=== PATIENT | female | born 1965 | race Hispanic/Latino ===

== ENCOUNTER 2022-03-22 20:21 | Inpatient (IN) | payer BC ==
[~2022-03-22] VITALS: Ht 157.5 cm; Wt 97.1 kg
[2022-03-22] MEDS ORDERED: ACETAMINOPHEN 325 MG TAB PO ONE (21:00)
[2022-03-22 21:05] LABS: BASOPHILS % 0.2 % (0.0-1.0); EOSINOPHILS # (AUTO) 0.3 (0.0-0.4); EOSINOPHILS % 2.2 % (0.0-6.0); HEMATOCRIT 36.9 % (34.2-44.1); LYMPHOCYTES # (AUTO) 1.9 (1.0-3.2); LYMPHOCYTES % 12.5 % (18.0-39.1); MEAN CORPUSCULAR HEMOGLOBIN 28.4 pg (28-32); MEAN CORPUSCULAR HGB CONC 32.5 g/dL (31-35); MEAN CORPUSCULAR VOLUME 87.2 fL (81-99); MONOCYTES # (AUTO) 1.5 (0.2-0.8); NEUTROPHILS # (AUTO) 11.3 (2.1-6.9); NEUTROPHILS % 74.7 % (38.7-80.0); PLATELET COUNT 456 x10e3/uL (140-360); RED BLOOD COUNT 4.23 x10e6/uL (3.6-5.1); RED CELL DISTRIBUTION WIDTH 14.4 % (11.7-14.4)
[2022-03-22 21:25] LABS: PARTIAL THROMBOPLASTIN TIME 26.2 seconds (23.8-35.5); PROTHROMBIN TIME 14.1 seconds (11.9-14.5)
[2022-03-22 21:32] LABS: ALBUMIN 2.7 g/dL (3.5-5.0); ALBUMIN/GLOBULIN RATIO 0.5 (0.8-2.0); ANION GAP 15.8 mmol/L (8-16); CALCIUM 8.7 mg/dL (8.4-10.2); CREATININE, SERUM 0.93 mg/dL (0.57-1.11); POTASSIUM 3.8 mmol/L (3.5-5.1)
[2022-03-22] MEDS ORDERED: HYDROCODONE/APAP 5MG-325MG TAB PO ONE (22:00)
[2022-03-22] MEDS ORDERED: ACETAMINOPHEN 325 MG TAB PO PRN (22:45)
[2022-03-22] MEDS ORDERED: DEXTROSE 50% SYRINGE 50 ML IV PRN (22:45)
[2022-03-22] MEDS: SODIUM CHLORIDE 0.9% 1000ML 1,000 ML IV SCH (23:15)
[2022-03-22] MEDS: Vancomycin IV 1 GM in SODIUM CHLORIDE 0.9% 250ML 250 ML IV SCH (23:15)
[2022-03-22 23:25] VITALS: BP 124/57
[2022-03-22 23:58] VITALS: BP 124/57
[2022-03-23] MEDS: INSULIN REGULAR, HUMAN 100 UNIT/1 ML SQ SCH ×5 (00:54→21:00)
[2022-03-23] MEDS ORDERED: MELOXICAM7.5 MG PO (02:01)
[2022-03-23] MEDS ORDERED: ASPIRIN81 MG PO (02:01)
[2022-03-23] MEDS ORDERED: METOPROLOL SUCC25 MG PO (02:01)
[2022-03-23] MEDS ORDERED: VITAMIN D3 MA125 MCG (02:01)
[2022-03-23] MEDS ORDERED: ATORVASTATIN CA40 MG PO (02:01)
[2022-03-23] MEDS ORDERED: LISINOPRIL10 MG PO (02:01)
[2022-03-23] MEDS ORDERED: GABAPENTIN600 MG (02:01)
[2022-03-23] MEDS ORDERED: FARXIGA10 MG (02:01)
[2022-03-23] MEDS ORDERED: CLOPIDOGREL75 MG PO (02:01)
[2022-03-23] MEDS ORDERED: METFORMIN HCL500 MG PO (02:01)
[2022-03-23] MEDS ORDERED: HEPARIN 25,000 UNIT 25,000 UNIT in DEXTROSE 5% 250ML 250 ML IV SCH (03:45)
[2022-03-23] MEDS ORDERED: HEPARIN 25,000 UNIT 1,200 UNIT in DEXTROSE 5% 250ML 250 ML IV SCH (03:45)
[2022-03-23] MEDS ORDERED: HEPARIN SOD (PORCINE) 5,000 UNIT/ML VIAL IV ONE ×2 (03:45→04:00)
[2022-03-23 04:00] VITALS: BP 135/72
[2022-03-23] MEDS ORDERED: HEPARIN 25,000 UNIT DRIP IV ONE (04:29)
[2022-03-23] MEDS: ONDANSETRON HCL INJ 2MG/ML 2ML 2 MG/ML VIAL IV PRN ×5 (04:30→23:52)
[2022-03-23] MEDS: HEPARIN 25,000 UNIT 1,200 UNIT in DEXTROSE 5% 250ML 250 ML IV SCH (04:42)
[2022-03-23 05:27] LABS: BASOPHILS % 0.3 % (0.0-1.0); EOSINOPHILS # (AUTO) 0.4 (0.0-0.4); EOSINOPHILS % 3.3 % (0.0-6.0); HEMATOCRIT 33.3 % (34.2-44.1); HEMOGLOBIN 10.7 g/dL (12.0-16.0); LYMPHOCYTES % 14.6 % (18.0-39.1); MEAN CORPUSCULAR HEMOGLOBIN 28.2 pg (28-32); MEAN CORPUSCULAR HGB CONC 32.1 g/dL (31-35); MEAN CORPUSCULAR VOLUME 87.9 fL (81-99); MONOCYTES # (AUTO) 1.7 (0.2-0.8); MONOCYTES % 12.3 % (4.4-11.3); NEUTROPHILS # (AUTO) 9.3 (2.1-6.9); PLATELET COUNT 407 x10e3/uL (140-360); RED BLOOD COUNT 3.79 x10e6/uL (3.6-5.1); RED CELL DISTRIBUTION WIDTH 14.4 % (11.7-14.4)
[2022-03-23 05:54] LABS: ALBUMIN 2.5 g/dL (3.5-5.0); ALBUMIN/GLOBULIN RATIO 0.6 (0.8-2.0); ANION GAP 14.5 mmol/L (8-16); CALCIUM 8.3 mg/dL (8.4-10.2); CREATININE, SERUM 0.97 mg/dL (0.57-1.11); POTASSIUM 3.5 mmol/L (3.5-5.1)
[2022-03-23] MEDS ORDERED: INSULIN REGULAR, HUMAN 100 UNIT/1 ML SQ SCH (07:30)
[2022-03-23 07:48] VITALS: BP_SYST 118; BP_SYST 99; BP_DIAS 65; BP_DIAS 80
[2022-03-23 08:00] VITALS: BP 99/80
[2022-03-23] MEDS: Morphine 4mg INJECTION 4 MG/ML INJ IV PRN ×4 (09:23→23:52)
[2022-03-23] MEDS: SODIUM CHLORIDE 0.9% 1000ML 1,000 ML IV SCH ×4 (09:23→21:08)
[2022-03-23] MEDS: PREDNISONE 20 MG TAB PO SCH (11:16)
[2022-03-23] MEDS: Vancomycin IV 1 GM in SODIUM CHLORIDE 0.9% 250ML 250 ML IV SCH ×2 (11:16→23:00)
[2022-03-23] MEDS: FAMOTIDINE 20 MG TAB PO SCH ×2 (11:17→20:59)
[2022-03-23] MEDS: DIPHENHYDRAMINE HCL 25 MG CAP PO SCH ×2 (11:17→20:58)
[2022-03-23 11:31] VITALS: BP 140/79
[2022-03-23 15:16] VITALS: BP 109/53
[2022-03-23 20:00] VITALS: BP 141/66
[2022-03-23] MEDS: ATORVASTATIN 40 MG TAB PO SCH (20:59)
[2022-03-24] VITALS (7 sets, daily range): BP systolic 126–170; BP diastolic 61–72
[2022-03-24] MEDS: HEPARIN 25,000 UNIT 1,200 UNIT in DEXTROSE 5% 250ML 250 ML IV SCH (04:00)
[2022-03-24 05:27] LABS: BASOPHILS % 0.2 % (0.0-1.0); EOSINOPHILS % 0.2 % (0.0-6.0); HEMATOCRIT 32.4 % (34.2-44.1); HEMOGLOBIN 10.3 g/dL (12.0-16.0); LYMPHOCYTES # (AUTO) 1.5 (1.0-3.2); LYMPHOCYTES % 11.1 % (18.0-39.1); MEAN CORPUSCULAR HEMOGLOBIN 27.7 pg (28-32); MEAN CORPUSCULAR HGB CONC 31.8 g/dL (31-35); MEAN CORPUSCULAR VOLUME 87.1 fL (81-99); MONOCYTES % 7.9 % (4.4-11.3); NEUTROPHILS # (AUTO) 10.6 (2.1-6.9); NEUTROPHILS % 80.1 % (38.7-80.0); PLATELET COUNT 433 x10e3/uL (140-360); RED BLOOD COUNT 3.72 x10e6/uL (3.6-5.1); RED CELL DISTRIBUTION WIDTH 14.3 % (11.7-14.4)
[2022-03-24 05:55] LABS: ANION GAP 11.1 mmol/L (8-16); CALCIUM 7.7 mg/dL (8.4-10.2); CREATININE, SERUM 0.81 mg/dL (0.57-1.11); POTASSIUM 4.1 mmol/L (3.5-5.1)
[2022-03-24 06:11] LABS: CHOL/HDL RATIO 5.7 (3.0-3.6)
[2022-03-24] MEDS: Morphine 4mg INJECTION 4 MG/ML INJ IV PRN ×5 (06:20→21:01)
[2022-03-24] MEDS: ONDANSETRON HCL INJ 2MG/ML 2ML 2 MG/ML VIAL IV PRN ×4 (06:21→21:01)
[2022-03-24] MEDS: INSULIN REGULAR, HUMAN 100 UNIT/1 ML SQ SCH ×4 (07:30→22:07)
[2022-03-24] MEDS: PREDNISONE 20 MG TAB PO SCH (09:00)
[2022-03-24] MEDS: FAMOTIDINE 20 MG TAB PO SCH ×2 (09:00→20:56)
[2022-03-24] MEDS: DIPHENHYDRAMINE HCL 25 MG CAP PO SCH ×2 (09:00→20:56)
[2022-03-24] MEDS: SODIUM CHLORIDE 0.9% 1000ML 1,000 ML IV SCH ×4 (09:13→22:56)
[2022-03-24] MEDS ORDERED: VERAPAMIL HCL 2.5 MG/ML 2 ML VIAL ONE (09:21)
[2022-03-24] MEDS ORDERED: HEPARIN SOD (PORCINE) 1000 UNIT/ML 30ML ONE (09:21)
[2022-03-24] MEDS ORDERED: IOPAMIDOL 300MG/ML 100 ML INFUS..BTL IV ONE (09:22)
[2022-03-24] MEDS ORDERED: LIDOCAINE HCL 1% LOCAL INJ 20 ML VIAL ONE (09:22)
[2022-03-24] MEDS ORDERED: NITROGLYCERIN/D5W 200 MCG/ML 250 ML ONE (09:22)
[2022-03-24] MEDS ORDERED: HEPARIN SOD/SOD CHLORIDE 2,000 ML ONE (09:22)
[2022-03-24] MEDS ORDERED: SODIUM CHLORIDE 0.9% 1000ML 0 ML ONE (09:22)
[2022-03-24] MEDS ORDERED: SODIUM CHLORIDE 0.9% 1000ML 1,000 ML ONE (09:35)
[2022-03-24] MEDS ORDERED: DIPHENHYDRAMINE HCL INJ 50 MG/ML VIAL ONE (10:21)
[2022-03-24] MEDS ORDERED: METHYLPREDNISOLONE SOD SUCC 125 MG/2ML VIAL ONE (10:21)
[2022-03-24] MEDS ORDERED: FENTANYL CITRATE/PF 100MCG/2 ML INJ ONE (10:26)
[2022-03-24] MEDS ORDERED: MIDAZOLAM HCL 2 MG/2 ML VIAL ONE (10:26)
[2022-03-24] MEDS: Vancomycin IV 1 GM in SODIUM CHLORIDE 0.9% 250ML 250 ML IV SCH ×2 (12:35→23:00)
[2022-03-24] MEDS: ATORVASTATIN 40 MG TAB PO SCH (20:56)
[2022-03-25] VITALS (7 sets, daily range): BP systolic 129–152; BP diastolic 64–75
[2022-03-25] MEDS: Morphine 4mg INJECTION 4 MG/ML INJ IV PRN ×6 (01:55→22:37)
[2022-03-25] MEDS: ONDANSETRON HCL INJ 2MG/ML 2ML 2 MG/ML VIAL IV PRN ×6 (01:56→22:37)
[2022-03-25] MEDS: SODIUM CHLORIDE 0.9% 1000ML 1,000 ML IV SCH ×5 (02:40→22:28)
[2022-03-25] MEDS: INSULIN REGULAR, HUMAN 100 UNIT/1 ML SQ SCH ×4 (08:35→22:41)
[2022-03-25] MEDS: FAMOTIDINE 20 MG TAB PO SCH ×2 (08:42→22:28)
[2022-03-25] MEDS: ASPIRIN 81 MG CHEW TAB PO SCH (08:42)
[2022-03-25] MEDS: DIPHENHYDRAMINE HCL 25 MG CAP PO SCH ×2 (08:42→22:28)
[2022-03-25] MEDS: PREDNISONE 20 MG TAB PO SCH (08:42)
[2022-03-25] MEDS: METOPROLOL SUCCINATE 25 MG TAB XL PO SCH (12:00)
[2022-03-25] MEDS: ATORVASTATIN 40 MG TAB PO SCH (22:28)
[2022-03-26] VITALS (8 sets, daily range): BP systolic 147–178; BP diastolic 71–89
[2022-03-26] MEDS: Morphine 4mg INJECTION 4 MG/ML INJ IV PRN ×5 (02:37→18:39)
[2022-03-26] MEDS: ONDANSETRON HCL INJ 2MG/ML 2ML 2 MG/ML VIAL IV PRN ×2 (02:37→06:06)
[2022-03-26] MEDS: SODIUM CHLORIDE 0.9% 1000ML 1,000 ML IV SCH ×3 (05:36→18:47)
[2022-03-26] MEDS: INSULIN REGULAR, HUMAN 100 UNIT/1 ML SQ SCH ×4 (07:30→21:57)
[2022-03-26] MEDS: CEFTRIAXONE 2 GM in SODIUM CHLORIDE 0.9% 100 ML IV SCH (08:50)
[2022-03-26] MEDS: ASPIRIN 81 MG CHEW TAB PO SCH (08:52)
[2022-03-26] MEDS: PREDNISONE 20 MG TAB PO SCH (08:52)
[2022-03-26] MEDS: DIPHENHYDRAMINE HCL 25 MG CAP PO SCH (08:53)
[2022-03-26] MEDS: FAMOTIDINE 20 MG TAB PO SCH (08:53)
[2022-03-26] MEDS: METOPROLOL SUCCINATE 25 MG TAB XL PO SCH (08:53)
[2022-03-26] MEDS ORDERED: LISINOPRIL 20 MG TAB PO SCH (13:00)
[2022-03-26] MEDS ORDERED: MAGNESIUM HYDROXIDE 30 ML UDC PO PRN (13:30)
[2022-03-26] MEDS: DOCUSATE SODIUM 100 MG CAP PO SCH (16:58)
[2022-03-26] MEDS ORDERED: Morphine 4mg INJECTION 4 MG/ML INJ IV PRN (19:00)
[2022-03-26] MEDS ORDERED: INSULIN GLARGINE 100 UNITS/ML VIAL SQ SCH (21:00)
[2022-03-26] MEDS: ATORVASTATIN 40 MG TAB PO SCH (22:00)
[2022-03-26] MEDS: HYDROCODONE/APAP 7.5MG-325MG 1 EA TAB PO PRN (22:01)
[2022-03-27] VITALS (8 sets, daily range): BP systolic 148–174; BP diastolic 64–75
[2022-03-27] MEDS ORDERED: HYDRALAZINE HCL 20 MG/ML VIAL IV PRN (00:15)
[2022-03-27] MEDS: HYDROCODONE/APAP 7.5MG-325MG 1 EA TAB PO PRN ×3 (04:58→18:36)
[2022-03-27] MEDS: Morphine 4mg INJECTION 4 MG/ML INJ IV PRN ×2 (07:33→13:55)
[2022-03-27] MEDS: INSULIN REGULAR, HUMAN 100 UNIT/1 ML SQ SCH ×4 (08:30→21:00)
[2022-03-27] MEDS ORDERED: INSULIN GLARGINE 100 UNITS/ML VIAL SQ SCH (09:00)
[2022-03-27] MEDS: DOCUSATE SODIUM 100 MG CAP PO SCH ×2 (09:00→22:51)
[2022-03-27] MEDS: CEFTRIAXONE 2 GM in SODIUM CHLORIDE 0.9% 100 ML IV SCH (09:00)
[2022-03-27] MEDS: METOPROLOL SUCCINATE 25 MG TAB XL PO SCH (09:00)
[2022-03-27] MEDS: ASPIRIN 81 MG CHEW TAB PO SCH (09:45)
[2022-03-27] MEDS: GABAPENTIN 300 MG CAP PO SCH ×2 (09:45→22:51)
[2022-03-27] MEDS: PREDNISONE 20 MG TAB PO SCH (09:45)
[2022-03-27] MEDS: LISINOPRIL 20 MG TAB PO SCH (09:45)
[2022-03-27] MEDS ORDERED: CEFTRIAXON2 GM/50 ML IVP (13:10)
[2022-03-27] MEDS ORDERED: HYDROCODON-ACE1 EA12 PO (13:27)
[2022-03-27] MEDS: HYDRALAZINE HCL 25 MG TAB PO SCH ×2 (16:00→22:52)
[2022-03-27] MEDS ORDERED: INSULIN REGULAR, HUMAN 100 UNIT/1 ML SQ ONE ×2 (17:00→22:45)
[2022-03-27] MEDS: ATORVASTATIN 40 MG TAB PO SCH (22:51)
[2022-03-27] MEDS: INSULIN GLARGINE 100 UNITS/ML VIAL SQ SCH (22:55)
[2022-03-28] VITALS: BP 143/70
[2022-03-28] MEDS: HYDROCODONE/APAP 7.5MG-325MG 1 EA TAB PO PRN ×3 (03:13→18:31)
[2022-03-28 04:00] VITALS: BP 151/66
[2022-03-28] MEDS: INSULIN REGULAR, HUMAN 100 UNIT/1 ML SQ SCH ×3 (07:30→17:19)
[2022-03-28 07:44] VITALS: BP 156/66
[2022-03-28] MEDS: HYDRALAZINE HCL 25 MG TAB PO SCH ×2 (09:00→16:30)
[2022-03-28] MEDS: INSULIN GLARGINE 100 UNITS/ML VIAL SQ SCH (09:00)
[2022-03-28] MEDS: METOPROLOL SUCCINATE 25 MG TAB XL PO SCH (09:00)
[2022-03-28] MEDS: CEFTRIAXONE 2 GM in SODIUM CHLORIDE 0.9% 100 ML IV SCH (09:16)
[2022-03-28] MEDS: GABAPENTIN 300 MG CAP PO SCH (09:17)
[2022-03-28] MEDS: LISINOPRIL 20 MG TAB PO SCH (09:17)
[2022-03-28] MEDS: PREDNISONE 20 MG TAB PO SCH (09:17)
[2022-03-28] MEDS: ASPIRIN 81 MG CHEW TAB PO SCH (09:17)
[2022-03-28] MEDS: DOCUSATE SODIUM 100 MG CAP PO SCH (09:17)
[2022-03-28 09:18] VITALS: BP 156/66
[2022-03-28 11:57] VITALS: BP 136/60
[2022-03-28] MEDS ORDERED: INSULIN REGULAR, HUMAN 100 UNIT/1 ML SQ ONE (12:15)
[2022-03-28] MEDS ORDERED: LANTUS 3ML100 UNITS/ SC (14:10)
[2022-03-28 15:45] VITALS: BP 135/61
== END 2022-03-28 18:44 | disposition home or self-care (01) | DRG 253 ==
LOC: ER 20:31 → MERGE 22:47 → ERHOLD 22:47 → MED/SURG2 23:33
PROVIDERS: ADMIT Internal Medicine; ATTEND Internal Medicine
PROC: 047R3ZZ Dilation of Right Posterior Tibial Artery, Percutaneous Approach (ICD-10-PCS; principal; 2022-03-24)
DX: E11.52 Type 2 diabetes mellitus with diabetic peripheral angiopathy with gangrene (principal); E87.1 Hypo-osmolality and hyponatremia; I96 Gangrene, not elsewhere classified; L03.115 Cellulitis of right lower limb; L97.422 Non-pressure chronic ulcer of left heel and midfoot with fat layer exposed; Z16.24 Resistance to multiple antibiotics; I10 Essential (primary) hypertension; E11.65 Type 2 diabetes mellitus with hyperglycemia; E88.09 Other disorders of plasma-protein metabolism, not elsewhere classified; I25.10 Atherosclerotic heart disease of native coronary artery without angina pectoris; E11.621 Type 2 diabetes mellitus with foot ulcer; L97.512 Non-pressure chronic ulcer of other part of right foot with fat layer exposed; B95.1 Streptococcus, group B, as the cause of diseases classified elsewhere; B95.61 Methicillin susceptible Staphylococcus aureus infection as the cause of diseases classified elsewhere; Z90.49 Acquired absence of other specified parts of digestive tract; Z95.5 Presence of coronary angioplasty implant and graft; E11.51 Type 2 diabetes mellitus with diabetic peripheral angiopathy without gangrene; L97.519 Non-pressure chronic ulcer of other part of right foot with unspecified severity; I70.234 Atherosclerosis of native arteries of right leg with ulceration of heel and midfoot; I70.235 Atherosclerosis of native arteries of right leg with ulceration of other part of foot; Z79.82 Long term (current) use of aspirin; Z79.4 Long term (current) use of insulin; Z79.84 Long term (current) use of oral hypoglycemic drugs
CPT/HCPCS: 36247; 36415; 36568; 37228; 71046; 75625; 75716; 80048; 80053; 80061; 80202; 82948; 83605; 85025; 85610; 85730; 87040; 93005; 93306; 93925; 94799; 96360; 96361; 96372; 99152; 99153; 99284; C1725; C1760; C1769; C1887; C1894; J0360; J0696; J1200; J1644; J1815; J1817; J2001; J2250; J2270; J2405; J2543; J2930; J3010; J3370; J7030; J7050; J7512; Q9967

== ENCOUNTER → 2022-03-31 | Outpatient (CLI) | payer BC ==
[~2022-03-31] MED LIST: ASPIRIN81 MG PO; ATORVASTATIN CA40 MG PO; CEFTRIAXON2 GM/50 ML IVP; CLOPIDOGREL75 MG PO; FARXIGA10 MG; GABAPENTIN600 MG; HYDROCODON-ACE1 EA12 PO; LANTUS 3ML100 UNITS/ SC; LISINOPRIL10 MG PO; MELOXICAM7.5 MG PO; METFORMIN HCL500 MG PO; METOPROLOL SUCC25 MG PO; VITAMIN D3 MA125 MCG
== END ==
LOC: WCC 13:52 → MERGE 15:35
PROVIDERS: ATTEND Family Medicine Adult Medicine
DX: E11.621 Type 2 diabetes mellitus with foot ulcer (principal); L97.419 Non-pressure chronic ulcer of right heel and midfoot with unspecified severity; L97.429 Non-pressure chronic ulcer of left heel and midfoot with unspecified severity; L97.511 Non-pressure chronic ulcer of other part of right foot limited to breakdown of skin; I77.1 Stricture of artery; I79.8 Other disorders of arteries, arterioles and capillaries in diseases classified elsewhere; I87.2 Venous insufficiency (chronic) (peripheral); I70.203 Unspecified atherosclerosis of native arteries of extremities, bilateral legs; D89.89 Other specified disorders involving the immune mechanism, not elsewhere classified; L40.52 Psoriatic arthritis mutilans; I99.8 Other disorder of circulatory system; E78.5 Hyperlipidemia, unspecified; I10 Essential (primary) hypertension; G99.0 Autonomic neuropathy in diseases classified elsewhere; Z01.810 Encounter for preprocedural cardiovascular examination
CPT/HCPCS: 88304; 88312

== ENCOUNTER → 2022-04-01 | Outpatient (CLI) | payer BC | LOC: WCC 14:07 | PROVIDERS: ATTEND Podiatrist | DX: E11.621 Type 2 diabetes mellitus with foot ulcer (principal); L97.419 Non-pressure chronic ulcer of right heel and midfoot with unspecified severity; L97.429 Non-pressure chronic ulcer of left heel and midfoot with unspecified severity; L97.511 Non-pressure chronic ulcer of other part of right foot limited to breakdown of skin; I77.1 Stricture of artery; I87.2 Venous insufficiency (chronic) (peripheral); I70.203 Unspecified atherosclerosis of native arteries of extremities, bilateral legs; I79.8 Other disorders of arteries, arterioles and capillaries in diseases classified elsewhere; I99.8 Other disorder of circulatory system; L40.52 Psoriatic arthritis mutilans; G99.0 Autonomic neuropathy in diseases classified elsewhere; I10 Essential (primary) hypertension; E78.5 Hyperlipidemia, unspecified; D89.89 Other specified disorders involving the immune mechanism, not elsewhere classified; Z01.810 Encounter for preprocedural cardiovascular examination | CPT/HCPCS: 87071; 87075; 87205 ==

== ENCOUNTER → 2022-04-08 | Outpatient (CLI) | payer BC ==
[~2022-04-08] MED LIST changes: +ACETAMINOPHEN-1 EAC4 MT
== END ==
LOC: RAD 14:26
PROVIDERS: ATTEND Family Medicine Adult Medicine
DX: Z01.810 Encounter for preprocedural cardiovascular examination (principal); E11.621 Type 2 diabetes mellitus with foot ulcer
CPT/HCPCS: 93306

== ENCOUNTER → 2022-04-08 | Outpatient (CLI) | payer BC | LOC: WCC 12:45 | PROVIDERS: ATTEND Podiatrist | DX: E11.621 Type 2 diabetes mellitus with foot ulcer (principal); L97.419 Non-pressure chronic ulcer of right heel and midfoot with unspecified severity; L97.429 Non-pressure chronic ulcer of left heel and midfoot with unspecified severity; L97.511 Non-pressure chronic ulcer of other part of right foot limited to breakdown of skin; I77.1 Stricture of artery; I79.8 Other disorders of arteries, arterioles and capillaries in diseases classified elsewhere; I99.8 Other disorder of circulatory system; D89.89 Other specified disorders involving the immune mechanism, not elsewhere classified; I87.2 Venous insufficiency (chronic) (peripheral); I70.203 Unspecified atherosclerosis of native arteries of extremities, bilateral legs; E78.5 Hyperlipidemia, unspecified; L40.52 Psoriatic arthritis mutilans; I10 Essential (primary) hypertension; G99.0 Autonomic neuropathy in diseases classified elsewhere; Z01.810 Encounter for preprocedural cardiovascular examination ==

== ENCOUNTER → 2022-04-17 | Outpatient (CLI) | payer BC ==
[~2022-04-17] MED LIST changes: +COLLAGENASE OINTMENT 30 GM TUBE ONE; +LIDOCAINE HCL 1% LOCAL INJ 20 ML VIAL ONE; +LIDOCAINE VISC 2% SOLN 15 ML UDC ONE; +LIDOCAINE/PRILOCAINE 2.5-2.5% KIT ONE
== END ==
LOC: WCC 14:32
PROVIDERS: ATTEND Podiatrist
DX: E11.621 Type 2 diabetes mellitus with foot ulcer (principal); L97.511 Non-pressure chronic ulcer of other part of right foot limited to breakdown of skin; L97.429 Non-pressure chronic ulcer of left heel and midfoot with unspecified severity; L97.419 Non-pressure chronic ulcer of right heel and midfoot with unspecified severity; I87.2 Venous insufficiency (chronic) (peripheral); I70.203 Unspecified atherosclerosis of native arteries of extremities, bilateral legs; I77.1 Stricture of artery; I79.8 Other disorders of arteries, arterioles and capillaries in diseases classified elsewhere; I10 Essential (primary) hypertension; E78.5 Hyperlipidemia, unspecified; I99.8 Other disorder of circulatory system; L40.52 Psoriatic arthritis mutilans; D89.89 Other specified disorders involving the immune mechanism, not elsewhere classified; G99.0 Autonomic neuropathy in diseases classified elsewhere; Z01.810 Encounter for preprocedural cardiovascular examination
CPT/HCPCS: 36415; 82948; 88304; 88305; 88311

== ENCOUNTER → 2022-04-22 | Outpatient (CLI) | payer BC ==
[~2022-04-22] MED LIST changes: -COLLAGENASE OINTMENT 30 GM TUBE ONE; -LIDOCAINE HCL 1% LOCAL INJ 20 ML VIAL ONE; -LIDOCAINE VISC 2% SOLN 15 ML UDC ONE; -LIDOCAINE/PRILOCAINE 2.5-2.5% KIT ONE
== END ==
LOC: WCC 14:29
PROVIDERS: ATTEND Podiatrist
DX: E11.621 Type 2 diabetes mellitus with foot ulcer (principal); L97.419 Non-pressure chronic ulcer of right heel and midfoot with unspecified severity; L97.429 Non-pressure chronic ulcer of left heel and midfoot with unspecified severity; L97.511 Non-pressure chronic ulcer of other part of right foot limited to breakdown of skin; I77.1 Stricture of artery; I79.8 Other disorders of arteries, arterioles and capillaries in diseases classified elsewhere; I70.203 Unspecified atherosclerosis of native arteries of extremities, bilateral legs; I87.2 Venous insufficiency (chronic) (peripheral); G99.0 Autonomic neuropathy in diseases classified elsewhere; I10 Essential (primary) hypertension; E78.5 Hyperlipidemia, unspecified; I99.8 Other disorder of circulatory system; D89.89 Other specified disorders involving the immune mechanism, not elsewhere classified; L40.52 Psoriatic arthritis mutilans; Z01.810 Encounter for preprocedural cardiovascular examination

== ENCOUNTER → 2022-04-28 | Outpatient (CLI) | payer BC | LOC: WCC 13:57 | PROVIDERS: ATTEND Family Medicine Adult Medicine | DX: E11.621 Type 2 diabetes mellitus with foot ulcer (principal); L97.511 Non-pressure chronic ulcer of other part of right foot limited to breakdown of skin; L97.429 Non-pressure chronic ulcer of left heel and midfoot with unspecified severity; L97.419 Non-pressure chronic ulcer of right heel and midfoot with unspecified severity; I77.1 Stricture of artery; I79.8 Other disorders of arteries, arterioles and capillaries in diseases classified elsewhere; I70.203 Unspecified atherosclerosis of native arteries of extremities, bilateral legs; I87.2 Venous insufficiency (chronic) (peripheral); I10 Essential (primary) hypertension; E78.5 Hyperlipidemia, unspecified; L40.52 Psoriatic arthritis mutilans; I99.8 Other disorder of circulatory system; D89.89 Other specified disorders involving the immune mechanism, not elsewhere classified; G99.0 Autonomic neuropathy in diseases classified elsewhere; Z01.810 Encounter for preprocedural cardiovascular examination ==

== ENCOUNTER → 2022-04-30 | Outpatient (CLI) | payer BC | LOC: WCC 13:36 | PROVIDERS: ATTEND Podiatrist | DX: E11.621 Type 2 diabetes mellitus with foot ulcer (principal); L97.511 Non-pressure chronic ulcer of other part of right foot limited to breakdown of skin; I77.1 Stricture of artery; I99.8 Other disorder of circulatory system; I79.8 Other disorders of arteries, arterioles and capillaries in diseases classified elsewhere; L97.429 Non-pressure chronic ulcer of left heel and midfoot with unspecified severity; L97.419 Non-pressure chronic ulcer of right heel and midfoot with unspecified severity; I70.203 Unspecified atherosclerosis of native arteries of extremities, bilateral legs; I87.2 Venous insufficiency (chronic) (peripheral); L40.52 Psoriatic arthritis mutilans; I10 Essential (primary) hypertension; E78.5 Hyperlipidemia, unspecified; D89.89 Other specified disorders involving the immune mechanism, not elsewhere classified; G99.0 Autonomic neuropathy in diseases classified elsewhere; Z01.810 Encounter for preprocedural cardiovascular examination ==

== ENCOUNTER → 2022-05-01 | Outpatient (CLI) | payer BC | LOC: WCC 16:19 | PROVIDERS: ATTEND Podiatrist | DX: E11.621 Type 2 diabetes mellitus with foot ulcer (principal); L97.518 Non-pressure chronic ulcer of other part of right foot with other specified severity; L97.429 Non-pressure chronic ulcer of left heel and midfoot with unspecified severity; L97.419 Non-pressure chronic ulcer of right heel and midfoot with unspecified severity; I77.1 Stricture of artery; I79.8 Other disorders of arteries, arterioles and capillaries in diseases classified elsewhere; I70.203 Unspecified atherosclerosis of native arteries of extremities, bilateral legs; I87.2 Venous insufficiency (chronic) (peripheral); I10 Essential (primary) hypertension; E78.5 Hyperlipidemia, unspecified; I99.8 Other disorder of circulatory system; L40.52 Psoriatic arthritis mutilans; D89.89 Other specified disorders involving the immune mechanism, not elsewhere classified; G99.0 Autonomic neuropathy in diseases classified elsewhere; Z01.810 Encounter for preprocedural cardiovascular examination ==

== ENCOUNTER → 2022-05-04 | Outpatient (CLI) | payer BC | LOC: WCC 14:39 | PROVIDERS: ATTEND Podiatrist | DX: E11.621 Type 2 diabetes mellitus with foot ulcer (principal); L97.518 Non-pressure chronic ulcer of other part of right foot with other specified severity; L97.429 Non-pressure chronic ulcer of left heel and midfoot with unspecified severity; L97.419 Non-pressure chronic ulcer of right heel and midfoot with unspecified severity; I77.1 Stricture of artery; I79.8 Other disorders of arteries, arterioles and capillaries in diseases classified elsewhere; I70.203 Unspecified atherosclerosis of native arteries of extremities, bilateral legs; I87.2 Venous insufficiency (chronic) (peripheral); D89.89 Other specified disorders involving the immune mechanism, not elsewhere classified; I10 Essential (primary) hypertension; E78.5 Hyperlipidemia, unspecified; I99.8 Other disorder of circulatory system; L40.52 Psoriatic arthritis mutilans; G99.0 Autonomic neuropathy in diseases classified elsewhere; Z01.810 Encounter for preprocedural cardiovascular examination ==

== ENCOUNTER → 2022-05-05 | Outpatient (CLI) | payer BC | LOC: WCC 01:30 | PROVIDERS: ATTEND Podiatrist | DX: E11.621 Type 2 diabetes mellitus with foot ulcer (principal); L97.511 Non-pressure chronic ulcer of other part of right foot limited to breakdown of skin; L97.429 Non-pressure chronic ulcer of left heel and midfoot with unspecified severity; L97.419 Non-pressure chronic ulcer of right heel and midfoot with unspecified severity; I79.8 Other disorders of arteries, arterioles and capillaries in diseases classified elsewhere; I77.1 Stricture of artery; I87.2 Venous insufficiency (chronic) (peripheral); I99.8 Other disorder of circulatory system; I70.203 Unspecified atherosclerosis of native arteries of extremities, bilateral legs; I10 Essential (primary) hypertension; E78.5 Hyperlipidemia, unspecified; G99.0 Autonomic neuropathy in diseases classified elsewhere; L40.52 Psoriatic arthritis mutilans; D89.89 Other specified disorders involving the immune mechanism, not elsewhere classified; Z01.810 Encounter for preprocedural cardiovascular examination ==

== ENCOUNTER → 2022-05-06 | Outpatient (CLI) | payer BC | LOC: WCC 16:59 | PROVIDERS: ATTEND Podiatrist | DX: E11.621 Type 2 diabetes mellitus with foot ulcer (principal); L97.511 Non-pressure chronic ulcer of other part of right foot limited to breakdown of skin; L97.419 Non-pressure chronic ulcer of right heel and midfoot with unspecified severity; L97.429 Non-pressure chronic ulcer of left heel and midfoot with unspecified severity; I87.2 Venous insufficiency (chronic) (peripheral); I70.203 Unspecified atherosclerosis of native arteries of extremities, bilateral legs; I77.1 Stricture of artery; I79.8 Other disorders of arteries, arterioles and capillaries in diseases classified elsewhere; G99.0 Autonomic neuropathy in diseases classified elsewhere; I99.8 Other disorder of circulatory system; I10 Essential (primary) hypertension; E78.5 Hyperlipidemia, unspecified; L40.52 Psoriatic arthritis mutilans; D89.89 Other specified disorders involving the immune mechanism, not elsewhere classified; Z01.810 Encounter for preprocedural cardiovascular examination | CPT/HCPCS: 11042; 99213; G0277 ==

== ENCOUNTER → 2022-05-07 | Outpatient (CLI) | payer BC ==
[~2022-05-07] MED LIST changes: +CADEXOMER IODINE 30 GM TUBE ONE; +MINERAL OIL/PETROLAT/GLYCERI 2OZ CRM ONE
== END ==
LOC: WCC 16:16
PROVIDERS: ATTEND Internal Medicine Infectious Disease
DX: E11.621 Type 2 diabetes mellitus with foot ulcer (principal); L97.511 Non-pressure chronic ulcer of other part of right foot limited to breakdown of skin; I77.1 Stricture of artery; I79.8 Other disorders of arteries, arterioles and capillaries in diseases classified elsewhere; I70.203 Unspecified atherosclerosis of native arteries of extremities, bilateral legs; I87.2 Venous insufficiency (chronic) (peripheral); I10 Essential (primary) hypertension; E78.5 Hyperlipidemia, unspecified; I99.8 Other disorder of circulatory system; B96.89 Other specified bacterial agents as the cause of diseases classified elsewhere; D89.89 Other specified disorders involving the immune mechanism, not elsewhere classified; G99.0 Autonomic neuropathy in diseases classified elsewhere; L40.52 Psoriatic arthritis mutilans; Z01.810 Encounter for preprocedural cardiovascular examination
CPT/HCPCS: 36415; 82948

== ENCOUNTER → 2022-05-08 | Outpatient (CLI) | payer BC ==
[~2022-05-08] MED LIST changes: -CADEXOMER IODINE 30 GM TUBE ONE; -MINERAL OIL/PETROLAT/GLYCERI 2OZ CRM ONE
== END ==
LOC: WCC 15:55
PROVIDERS: ATTEND Podiatrist
DX: E11.621 Type 2 diabetes mellitus with foot ulcer (principal); L97.511 Non-pressure chronic ulcer of other part of right foot limited to breakdown of skin; I87.2 Venous insufficiency (chronic) (peripheral); I70.203 Unspecified atherosclerosis of native arteries of extremities, bilateral legs; I79.8 Other disorders of arteries, arterioles and capillaries in diseases classified elsewhere; I77.1 Stricture of artery; I10 Essential (primary) hypertension; B96.89 Other specified bacterial agents as the cause of diseases classified elsewhere; I99.8 Other disorder of circulatory system; E78.5 Hyperlipidemia, unspecified; Z01.810 Encounter for preprocedural cardiovascular examination; L40.52 Psoriatic arthritis mutilans; G99.0 Autonomic neuropathy in diseases classified elsewhere; D89.89 Other specified disorders involving the immune mechanism, not elsewhere classified

== ENCOUNTER → 2022-05-11 | Outpatient (CLI) | payer BC ==
[2022-05-11 12:50] LABS: INR 1.07; PROTHROMBIN TIME 14.9 seconds (11.9-14.5)
[2022-05-11 12:51] LABS: PARTIAL THROMBOPLASTIN TIME 27.8 seconds (23.8-35.5)
[2022-05-11 12:57] LABS: CREATININE, SERUM 1.07 mg/dL (0.57-1.11)
== END ==
LOC: DX 12:18
PROVIDERS: ATTEND Internal Medicine Infectious Disease
DX: Z45.2 Encounter for adjustment and management of vascular access device (principal); E11.621 Type 2 diabetes mellitus with foot ulcer; L97.429 Non-pressure chronic ulcer of left heel and midfoot with unspecified severity; L97.511 Non-pressure chronic ulcer of other part of right foot limited to breakdown of skin
CPT/HCPCS: 36415; 36569; 71045; 82565; 84520; 85014; 85610; 85730

== ENCOUNTER → 2022-05-11 | Outpatient (CLI) | payer BC | LOC: WCC 12:59 | PROVIDERS: ATTEND Family Medicine Adult Medicine | DX: E11.621 Type 2 diabetes mellitus with foot ulcer (principal); L97.511 Non-pressure chronic ulcer of other part of right foot limited to breakdown of skin; I79.8 Other disorders of arteries, arterioles and capillaries in diseases classified elsewhere; I70.203 Unspecified atherosclerosis of native arteries of extremities, bilateral legs; I87.2 Venous insufficiency (chronic) (peripheral); I77.1 Stricture of artery; I10 Essential (primary) hypertension; E78.5 Hyperlipidemia, unspecified; L40.52 Psoriatic arthritis mutilans; G99.0 Autonomic neuropathy in diseases classified elsewhere; D89.89 Other specified disorders involving the immune mechanism, not elsewhere classified; I99.8 Other disorder of circulatory system; B96.89 Other specified bacterial agents as the cause of diseases classified elsewhere; Z01.810 Encounter for preprocedural cardiovascular examination | CPT/HCPCS: 99212; G0277 ==

== ENCOUNTER → 2022-05-13 | Outpatient (CLI) | payer BC | LOC: WCC 10:47 | PROVIDERS: ATTEND Podiatrist | DX: E11.621 Type 2 diabetes mellitus with foot ulcer (principal); L97.511 Non-pressure chronic ulcer of other part of right foot limited to breakdown of skin; I79.8 Other disorders of arteries, arterioles and capillaries in diseases classified elsewhere; I70.203 Unspecified atherosclerosis of native arteries of extremities, bilateral legs; I87.2 Venous insufficiency (chronic) (peripheral); I77.1 Stricture of artery; I10 Essential (primary) hypertension; E78.5 Hyperlipidemia, unspecified; L40.52 Psoriatic arthritis mutilans; G99.0 Autonomic neuropathy in diseases classified elsewhere; I99.8 Other disorder of circulatory system; D89.89 Other specified disorders involving the immune mechanism, not elsewhere classified; B96.89 Other specified bacterial agents as the cause of diseases classified elsewhere; Z01.810 Encounter for preprocedural cardiovascular examination | CPT/HCPCS: 11043; 99213; G0277 ==

== ENCOUNTER → 2022-05-14 | Outpatient (CLI) | payer BC | LOC: WCC 12:52 | PROVIDERS: ATTEND Family Medicine Adult Medicine | DX: E11.621 Type 2 diabetes mellitus with foot ulcer (principal); L97.511 Non-pressure chronic ulcer of other part of right foot limited to breakdown of skin; I77.1 Stricture of artery; I70.203 Unspecified atherosclerosis of native arteries of extremities, bilateral legs; I79.8 Other disorders of arteries, arterioles and capillaries in diseases classified elsewhere; I87.2 Venous insufficiency (chronic) (peripheral); I10 Essential (primary) hypertension; E78.5 Hyperlipidemia, unspecified; L40.52 Psoriatic arthritis mutilans; G99.0 Autonomic neuropathy in diseases classified elsewhere; I99.8 Other disorder of circulatory system; B96.89 Other specified bacterial agents as the cause of diseases classified elsewhere; D89.89 Other specified disorders involving the immune mechanism, not elsewhere classified; Z01.810 Encounter for preprocedural cardiovascular examination | CPT/HCPCS: 99213; G0277 ==

== ENCOUNTER → 2022-05-18 | Outpatient (CLI) | payer BC ==
[~2022-05-18] MED LIST changes: +CADEXOMER IODINE 30 GM TUBE ONE
== END ==
LOC: WCC 14:58
PROVIDERS: ATTEND Podiatrist
DX: E11.621 Type 2 diabetes mellitus with foot ulcer (principal); L97.511 Non-pressure chronic ulcer of other part of right foot limited to breakdown of skin; I77.1 Stricture of artery; I79.8 Other disorders of arteries, arterioles and capillaries in diseases classified elsewhere; I70.203 Unspecified atherosclerosis of native arteries of extremities, bilateral legs; I87.2 Venous insufficiency (chronic) (peripheral); I10 Essential (primary) hypertension; E78.5 Hyperlipidemia, unspecified; B96.89 Other specified bacterial agents as the cause of diseases classified elsewhere; I99.8 Other disorder of circulatory system; L40.52 Psoriatic arthritis mutilans; G99.0 Autonomic neuropathy in diseases classified elsewhere; D89.89 Other specified disorders involving the immune mechanism, not elsewhere classified; Z01.810 Encounter for preprocedural cardiovascular examination
CPT/HCPCS: 99213; G0277

== ENCOUNTER → 2022-05-20 | Outpatient (CLI) | payer BC ==
[~2022-05-20] MED LIST changes: -CADEXOMER IODINE 30 GM TUBE ONE
== END ==
LOC: WCC 15:21
PROVIDERS: ATTEND Podiatrist
DX: E11.621 Type 2 diabetes mellitus with foot ulcer (principal); L97.511 Non-pressure chronic ulcer of other part of right foot limited to breakdown of skin; I77.1 Stricture of artery; I79.8 Other disorders of arteries, arterioles and capillaries in diseases classified elsewhere; I70.203 Unspecified atherosclerosis of native arteries of extremities, bilateral legs; I87.2 Venous insufficiency (chronic) (peripheral); I10 Essential (primary) hypertension; E78.5 Hyperlipidemia, unspecified; I99.8 Other disorder of circulatory system; L40.52 Psoriatic arthritis mutilans; G99.0 Autonomic neuropathy in diseases classified elsewhere; D89.89 Other specified disorders involving the immune mechanism, not elsewhere classified; Z01.810 Encounter for preprocedural cardiovascular examination

== ENCOUNTER → 2022-05-21 | Outpatient (CLI) | payer BC | LOC: WCC 13:43 | PROVIDERS: ATTEND Podiatrist | DX: E11.621 Type 2 diabetes mellitus with foot ulcer (principal); L97.511 Non-pressure chronic ulcer of other part of right foot limited to breakdown of skin; I77.1 Stricture of artery; I70.203 Unspecified atherosclerosis of native arteries of extremities, bilateral legs; I79.8 Other disorders of arteries, arterioles and capillaries in diseases classified elsewhere; I87.2 Venous insufficiency (chronic) (peripheral); I10 Essential (primary) hypertension; E78.5 Hyperlipidemia, unspecified; L40.52 Psoriatic arthritis mutilans; G99.0 Autonomic neuropathy in diseases classified elsewhere; B96.89 Other specified bacterial agents as the cause of diseases classified elsewhere; I99.8 Other disorder of circulatory system; D89.89 Other specified disorders involving the immune mechanism, not elsewhere classified; Z01.810 Encounter for preprocedural cardiovascular examination | CPT/HCPCS: 99213; G0277 ==

== ENCOUNTER → 2022-05-22 | Outpatient (CLI) | payer BC | LOC: WCC 14:34 | PROVIDERS: ATTEND Podiatrist | DX: E11.621 Type 2 diabetes mellitus with foot ulcer (principal); L97.511 Non-pressure chronic ulcer of other part of right foot limited to breakdown of skin; I77.1 Stricture of artery; I87.2 Venous insufficiency (chronic) (peripheral); I70.203 Unspecified atherosclerosis of native arteries of extremities, bilateral legs; I79.8 Other disorders of arteries, arterioles and capillaries in diseases classified elsewhere; B96.89 Other specified bacterial agents as the cause of diseases classified elsewhere; I10 Essential (primary) hypertension; E78.5 Hyperlipidemia, unspecified; I99.8 Other disorder of circulatory system; L40.52 Psoriatic arthritis mutilans; G99.0 Autonomic neuropathy in diseases classified elsewhere; D89.89 Other specified disorders involving the immune mechanism, not elsewhere classified; Z01.810 Encounter for preprocedural cardiovascular examination | CPT/HCPCS: 99212; G0277 ==

== ENCOUNTER → 2022-05-25 | Outpatient (CLI) | payer BC | LOC: WCC 15:12 | PROVIDERS: ATTEND Podiatrist | DX: E11.621 Type 2 diabetes mellitus with foot ulcer (principal); L97.518 Non-pressure chronic ulcer of other part of right foot with other specified severity; I79.8 Other disorders of arteries, arterioles and capillaries in diseases classified elsewhere; I70.203 Unspecified atherosclerosis of native arteries of extremities, bilateral legs; I87.2 Venous insufficiency (chronic) (peripheral); I77.1 Stricture of artery; I10 Essential (primary) hypertension; E78.5 Hyperlipidemia, unspecified; I99.8 Other disorder of circulatory system; L40.52 Psoriatic arthritis mutilans; G99.0 Autonomic neuropathy in diseases classified elsewhere; B96.89 Other specified bacterial agents as the cause of diseases classified elsewhere; D89.89 Other specified disorders involving the immune mechanism, not elsewhere classified; Z01.810 Encounter for preprocedural cardiovascular examination | CPT/HCPCS: 99213; G0277 ==

== ENCOUNTER → 2022-05-27 | Outpatient (CLI) | payer BC | LOC: WCC 14:25 | PROVIDERS: ATTEND Podiatrist Foot & Ankle Surgery | DX: E11.621 Type 2 diabetes mellitus with foot ulcer (principal); L97.518 Non-pressure chronic ulcer of other part of right foot with other specified severity; I77.1 Stricture of artery; I87.2 Venous insufficiency (chronic) (peripheral); I79.8 Other disorders of arteries, arterioles and capillaries in diseases classified elsewhere; I70.203 Unspecified atherosclerosis of native arteries of extremities, bilateral legs; I10 Essential (primary) hypertension; E78.5 Hyperlipidemia, unspecified; L40.52 Psoriatic arthritis mutilans; G99.0 Autonomic neuropathy in diseases classified elsewhere; B96.89 Other specified bacterial agents as the cause of diseases classified elsewhere; I99.8 Other disorder of circulatory system; D89.89 Other specified disorders involving the immune mechanism, not elsewhere classified; Z01.810 Encounter for preprocedural cardiovascular examination ==

== ENCOUNTER → 2022-05-28 | Outpatient (CLI) | payer BC | LOC: WCC 14:56 | PROVIDERS: ATTEND Podiatrist Foot & Ankle Surgery | DX: E11.621 Type 2 diabetes mellitus with foot ulcer (principal); L97.518 Non-pressure chronic ulcer of other part of right foot with other specified severity; I77.1 Stricture of artery; I96 Gangrene, not elsewhere classified; I79.8 Other disorders of arteries, arterioles and capillaries in diseases classified elsewhere; I70.203 Unspecified atherosclerosis of native arteries of extremities, bilateral legs; I87.2 Venous insufficiency (chronic) (peripheral); I10 Essential (primary) hypertension; E78.5 Hyperlipidemia, unspecified; L40.52 Psoriatic arthritis mutilans; G99.0 Autonomic neuropathy in diseases classified elsewhere; I99.8 Other disorder of circulatory system; D89.89 Other specified disorders involving the immune mechanism, not elsewhere classified; B96.89 Other specified bacterial agents as the cause of diseases classified elsewhere; Z01.810 Encounter for preprocedural cardiovascular examination | CPT/HCPCS: 99213; G0277 ==

== ENCOUNTER → 2022-05-28 | Outpatient (CLI) | payer BC | LOC: WCC 15:04 | PROVIDERS: ATTEND Podiatrist | DX: E11.621 Type 2 diabetes mellitus with foot ulcer (principal); L97.518 Non-pressure chronic ulcer of other part of right foot with other specified severity; I77.1 Stricture of artery; I79.8 Other disorders of arteries, arterioles and capillaries in diseases classified elsewhere; I70.203 Unspecified atherosclerosis of native arteries of extremities, bilateral legs; I87.2 Venous insufficiency (chronic) (peripheral); I10 Essential (primary) hypertension; E78.5 Hyperlipidemia, unspecified; L40.52 Psoriatic arthritis mutilans; G99.0 Autonomic neuropathy in diseases classified elsewhere; I99.8 Other disorder of circulatory system; D89.89 Other specified disorders involving the immune mechanism, not elsewhere classified; B96.89 Other specified bacterial agents as the cause of diseases classified elsewhere; Z01.810 Encounter for preprocedural cardiovascular examination ==

== ENCOUNTER → 2022-06-01 | Outpatient (CLI) | payer BC | LOC: WCC 13:16 | PROVIDERS: ATTEND Podiatrist Foot & Ankle Surgery | DX: E11.621 Type 2 diabetes mellitus with foot ulcer (principal); I96 Gangrene, not elsewhere classified; I77.1 Stricture of artery; L97.518 Non-pressure chronic ulcer of other part of right foot with other specified severity; I79.8 Other disorders of arteries, arterioles and capillaries in diseases classified elsewhere; I87.2 Venous insufficiency (chronic) (peripheral); I70.203 Unspecified atherosclerosis of native arteries of extremities, bilateral legs; I10 Essential (primary) hypertension; E78.5 Hyperlipidemia, unspecified; I99.8 Other disorder of circulatory system; B96.89 Other specified bacterial agents as the cause of diseases classified elsewhere; D89.89 Other specified disorders involving the immune mechanism, not elsewhere classified; G99.0 Autonomic neuropathy in diseases classified elsewhere; L40.52 Psoriatic arthritis mutilans; Z01.810 Encounter for preprocedural cardiovascular examination | CPT/HCPCS: 99213; G0277 ==

== ENCOUNTER → 2022-06-02 | Outpatient (CLI) | payer BC | LOC: WCC 13:31 | PROVIDERS: ATTEND Podiatrist Foot & Ankle Surgery | DX: E11.621 Type 2 diabetes mellitus with foot ulcer (principal); I96 Gangrene, not elsewhere classified; L97.518 Non-pressure chronic ulcer of other part of right foot with other specified severity; I77.1 Stricture of artery; I79.8 Other disorders of arteries, arterioles and capillaries in diseases classified elsewhere; I70.203 Unspecified atherosclerosis of native arteries of extremities, bilateral legs; I87.2 Venous insufficiency (chronic) (peripheral); I10 Essential (primary) hypertension; I99.8 Other disorder of circulatory system; D89.89 Other specified disorders involving the immune mechanism, not elsewhere classified; G99.0 Autonomic neuropathy in diseases classified elsewhere; L40.52 Psoriatic arthritis mutilans; B96.89 Other specified bacterial agents as the cause of diseases classified elsewhere; Z01.810 Encounter for preprocedural cardiovascular examination | CPT/HCPCS: 99203; G0277 ==

== ENCOUNTER → 2022-06-04 | Outpatient (CLI) | payer BC | LOC: WCC 13:19 | PROVIDERS: ATTEND Podiatrist Foot & Ankle Surgery | DX: E11.621 Type 2 diabetes mellitus with foot ulcer (principal); I96 Gangrene, not elsewhere classified; L97.518 Non-pressure chronic ulcer of other part of right foot with other specified severity; I77.1 Stricture of artery; I70.203 Unspecified atherosclerosis of native arteries of extremities, bilateral legs; I79.8 Other disorders of arteries, arterioles and capillaries in diseases classified elsewhere; I87.2 Venous insufficiency (chronic) (peripheral); I10 Essential (primary) hypertension; L40.52 Psoriatic arthritis mutilans; G99.0 Autonomic neuropathy in diseases classified elsewhere; B96.89 Other specified bacterial agents as the cause of diseases classified elsewhere; I99.8 Other disorder of circulatory system; E78.5 Hyperlipidemia, unspecified; D89.89 Other specified disorders involving the immune mechanism, not elsewhere classified; Z01.810 Encounter for preprocedural cardiovascular examination | CPT/HCPCS: 99212; G0277 ==

== ENCOUNTER → 2022-06-05 | Outpatient (CLI) | payer BC ==
[~2022-06-05] MED LIST changes: -FARXIGA10 MG; +FARXIGA10 MG PO; -GABAPENTIN600 MG; +GABAPENTIN600 MG PO
== END ==
LOC: WCC 14:33
PROVIDERS: ATTEND Podiatrist Foot & Ankle Surgery
DX: E11.621 Type 2 diabetes mellitus with foot ulcer (principal); L97.518 Non-pressure chronic ulcer of other part of right foot with other specified severity; I96 Gangrene, not elsewhere classified; I99.8 Other disorder of circulatory system; I70.203 Unspecified atherosclerosis of native arteries of extremities, bilateral legs; I77.1 Stricture of artery; I79.8 Other disorders of arteries, arterioles and capillaries in diseases classified elsewhere; I87.2 Venous insufficiency (chronic) (peripheral); L40.52 Psoriatic arthritis mutilans; I10 Essential (primary) hypertension; E78.5 Hyperlipidemia, unspecified; D89.89 Other specified disorders involving the immune mechanism, not elsewhere classified; G99.0 Autonomic neuropathy in diseases classified elsewhere; Z01.810 Encounter for preprocedural cardiovascular examination
CPT/HCPCS: 93922; G0277

== ENCOUNTER → 2022-06-05 | Outpatient (CLI) | payer BC | LOC: RAD 12:22 | PROVIDERS: ATTEND Podiatrist Foot & Ankle Surgery | DX: E11.621 Type 2 diabetes mellitus with foot ulcer (principal); L97.518 Non-pressure chronic ulcer of other part of right foot with other specified severity ==

== ENCOUNTER → 2022-06-08 | Outpatient (CLI) | payer BC | LOC: WCC 10:08 | PROVIDERS: ATTEND Podiatrist Foot & Ankle Surgery | DX: E11.621 Type 2 diabetes mellitus with foot ulcer (principal); M86.171 Other acute osteomyelitis, right ankle and foot; I96 Gangrene, not elsewhere classified; L97.518 Non-pressure chronic ulcer of other part of right foot with other specified severity; I77.1 Stricture of artery; I79.8 Other disorders of arteries, arterioles and capillaries in diseases classified elsewhere; I87.2 Venous insufficiency (chronic) (peripheral); I70.203 Unspecified atherosclerosis of native arteries of extremities, bilateral legs; I10 Essential (primary) hypertension; E78.5 Hyperlipidemia, unspecified; B96.89 Other specified bacterial agents as the cause of diseases classified elsewhere; L40.52 Psoriatic arthritis mutilans; I99.8 Other disorder of circulatory system; D89.89 Other specified disorders involving the immune mechanism, not elsewhere classified; G99.0 Autonomic neuropathy in diseases classified elsewhere; Z01.810 Encounter for preprocedural cardiovascular examination | CPT/HCPCS: 99213; G0277 ==

== ENCOUNTER → 2022-06-09 | Outpatient (CLI) | payer BC | LOC: WCC 10:01 | PROVIDERS: ATTEND Podiatrist Foot & Ankle Surgery | DX: E11.621 Type 2 diabetes mellitus with foot ulcer (principal); I96 Gangrene, not elsewhere classified; M86.171 Other acute osteomyelitis, right ankle and foot; L97.518 Non-pressure chronic ulcer of other part of right foot with other specified severity; I70.203 Unspecified atherosclerosis of native arteries of extremities, bilateral legs; I77.1 Stricture of artery; I79.8 Other disorders of arteries, arterioles and capillaries in diseases classified elsewhere; I87.2 Venous insufficiency (chronic) (peripheral); I10 Essential (primary) hypertension; E78.5 Hyperlipidemia, unspecified; L40.52 Psoriatic arthritis mutilans; B96.89 Other specified bacterial agents as the cause of diseases classified elsewhere; I99.8 Other disorder of circulatory system; D89.89 Other specified disorders involving the immune mechanism, not elsewhere classified; G99.0 Autonomic neuropathy in diseases classified elsewhere; Z01.810 Encounter for preprocedural cardiovascular examination | CPT/HCPCS: 99213; G0277 ==

== ENCOUNTER → 2022-06-10 | Outpatient (CLI) | payer BC | LOC: WCC 10:26 | PROVIDERS: ATTEND Podiatrist Foot & Ankle Surgery | DX: E11.621 Type 2 diabetes mellitus with foot ulcer (principal); M86.171 Other acute osteomyelitis, right ankle and foot; I96 Gangrene, not elsewhere classified; I77.1 Stricture of artery; I70.203 Unspecified atherosclerosis of native arteries of extremities, bilateral legs; L97.518 Non-pressure chronic ulcer of other part of right foot with other specified severity; I87.2 Venous insufficiency (chronic) (peripheral); I10 Essential (primary) hypertension; I99.8 Other disorder of circulatory system; E78.5 Hyperlipidemia, unspecified; G99.0 Autonomic neuropathy in diseases classified elsewhere; L40.52 Psoriatic arthritis mutilans; B96.89 Other specified bacterial agents as the cause of diseases classified elsewhere; I79.8 Other disorders of arteries, arterioles and capillaries in diseases classified elsewhere; Z01.810 Encounter for preprocedural cardiovascular examination; D89.89 Other specified disorders involving the immune mechanism, not elsewhere classified | CPT/HCPCS: 99213; G0277 ==

== ENCOUNTER → 2022-06-11 | Outpatient (CLI) | payer BC | LOC: WCC 12:18 | PROVIDERS: ATTEND Podiatrist Foot & Ankle Surgery | DX: E11.621 Type 2 diabetes mellitus with foot ulcer (principal); M86.171 Other acute osteomyelitis, right ankle and foot; I96 Gangrene, not elsewhere classified; L97.518 Non-pressure chronic ulcer of other part of right foot with other specified severity; I77.1 Stricture of artery; I70.203 Unspecified atherosclerosis of native arteries of extremities, bilateral legs; I79.8 Other disorders of arteries, arterioles and capillaries in diseases classified elsewhere; I87.2 Venous insufficiency (chronic) (peripheral); I10 Essential (primary) hypertension; E78.5 Hyperlipidemia, unspecified; G99.0 Autonomic neuropathy in diseases classified elsewhere; I99.8 Other disorder of circulatory system; B96.89 Other specified bacterial agents as the cause of diseases classified elsewhere; D89.89 Other specified disorders involving the immune mechanism, not elsewhere classified; L40.52 Psoriatic arthritis mutilans; Z01.810 Encounter for preprocedural cardiovascular examination | CPT/HCPCS: 99213; G0277 ==

== ENCOUNTER → 2022-06-15 | Outpatient (CLI) | payer BC ==
[~2022-06-15] MED LIST changes: +FENTANYL CITRATE/PF 100MCG/2 ML INJ ONE; +HYDROMORPHONE 1MG/1ML INJ ONE; +METOCLOPRAMIDE HCL 10 MG/2ML VIAL ONE; +ONDANSETRON HCL INJ 2MG/ML 2ML 2 MG/ML VIAL ONE
== END ==
LOC: WCC 08:29
PROVIDERS: ATTEND Podiatrist Foot & Ankle Surgery
DX: E11.621 Type 2 diabetes mellitus with foot ulcer (principal); I96 Gangrene, not elsewhere classified; M86.171 Other acute osteomyelitis, right ankle and foot; L97.518 Non-pressure chronic ulcer of other part of right foot with other specified severity; I77.1 Stricture of artery; I70.203 Unspecified atherosclerosis of native arteries of extremities, bilateral legs; I79.8 Other disorders of arteries, arterioles and capillaries in diseases classified elsewhere; I87.2 Venous insufficiency (chronic) (peripheral); I10 Essential (primary) hypertension; E78.5 Hyperlipidemia, unspecified; I99.8 Other disorder of circulatory system; L40.52 Psoriatic arthritis mutilans; B96.89 Other specified bacterial agents as the cause of diseases classified elsewhere; D89.89 Other specified disorders involving the immune mechanism, not elsewhere classified; G99.0 Autonomic neuropathy in diseases classified elsewhere; Z01.810 Encounter for preprocedural cardiovascular examination
CPT/HCPCS: 99213; G0277; J1170; J2405; J2765; J3010

== ENCOUNTER → 2022-06-16 | Day surgery (SDC) | payer BC ==
[2022-06-12 11:15] LABS: BASOPHILS # (AUTO) 0.1 (0.0-0.1); BASOPHILS % 0.6 % (0.0-1.0); EOSINOPHILS # (AUTO) 0.4 (0.0-0.4); EOSINOPHILS % 4.2 % (0.0-6.0); HEMATOCRIT 40.9 % (34.2-44.1); HEMOGLOBIN 12.6 g/dL (12.0-16.0); LYMPHOCYTES % 24.2 % (18.0-39.1); MEAN CORPUSCULAR HEMOGLOBIN 28.2 pg (28-32); MEAN CORPUSCULAR HGB CONC 30.8 g/dL (31-35); MEAN CORPUSCULAR VOLUME 91.5 fL (81-99); MONOCYTES # (AUTO) 0.7 (0.2-0.8); MONOCYTES % 8.5 % (4.4-11.3); NEUTROPHILS # (AUTO) 5.1 (2.1-6.9); NEUTROPHILS % 62.1 % (38.7-80.0); PLATELET COUNT 300 x10e3/uL (140-360); RED BLOOD COUNT 4.47 x10e6/uL (3.6-5.1); RED CELL DISTRIBUTION WIDTH 14.5 % (11.7-14.4)
[~2022-06-16] MED LIST changes: +BUPIVACAINE 0.25% 30ML SDV ONE; +DEXAMETHASONE SOD PHOS INJ 4 MG/ML SDV ONE; +LIDOCAINE HCL 2% LOCAL INJ 5 ML SDV VIAL INJ ONE; -METOCLOPRAMIDE HCL 10 MG/2ML VIAL ONE; +MIDAZOLAM HCL 2 MG/2 ML VIAL ONE; +POVIDONE IODINE 0.05% 0.05 % ML PO ONE; +PROPOFOL IV EMULSION 10 MG/ML 20 ML VIAL ONE; +SEVOFLURANE INHAL SOLN 250 ML PEN BTL ONE
[2022-06-16 10:52] LABS: ANION GAP 15.5 mmol/L (8-16); CALCIUM 9.2 mg/dL (8.4-10.2); CREATININE, SERUM 0.84 mg/dL (0.57-1.11); POTASSIUM 4.5 mmol/L (3.5-5.1)
[2022-06-16 13:10] VITALS: BP 128/66
== END | disposition home or self-care (01) ==
LOC: OR 09:26
PROVIDERS: ATTEND Podiatrist Foot & Ankle Surgery
DX: M86.171 Other acute osteomyelitis, right ankle and foot (principal); E11.621 Type 2 diabetes mellitus with foot ulcer; L97.519 Non-pressure chronic ulcer of other part of right foot with unspecified severity; R06.02 Shortness of breath; Z88.2 Allergy status to sulfonamides; Z88.1 Allergy status to other antibiotic agents; Z91.041 Radiographic dye allergy status; Z01.810 Encounter for preprocedural cardiovascular examination; Z01.812 Encounter for preprocedural laboratory examination; Z79.02 Long term (current) use of antithrombotics/antiplatelets; Z79.82 Long term (current) use of aspirin; Z79.4 Long term (current) use of insulin; Z79.899 Other long term (current) drug therapy
CPT/HCPCS: 28825; 36415 ×2; 76000; 80048; 82948; 85025; 87071; 87075; 87205; 88305; 88311; 93005; 97605; J0690; J2001; J2250; J2405; J2704; J3010; Q4104; 88304; 99251; J1100; J1170

== ENCOUNTER → 2022-06-18 | Outpatient (CLI) | payer BC ==
[~2022-06-18] MED LIST changes: -BUPIVACAINE 0.25% 30ML SDV ONE; -DEXAMETHASONE SOD PHOS INJ 4 MG/ML SDV ONE; -FENTANYL CITRATE/PF 100MCG/2 ML INJ ONE; -HYDROMORPHONE 1MG/1ML INJ ONE; -LIDOCAINE HCL 2% LOCAL INJ 5 ML SDV VIAL INJ ONE; -MIDAZOLAM HCL 2 MG/2 ML VIAL ONE; -ONDANSETRON HCL INJ 2MG/ML 2ML 2 MG/ML VIAL ONE; -POVIDONE IODINE 0.05% 0.05 % ML PO ONE; -PROPOFOL IV EMULSION 10 MG/ML 20 ML VIAL ONE; -SEVOFLURANE INHAL SOLN 250 ML PEN BTL ONE
== END ==
LOC: WCC 12:53
PROVIDERS: ATTEND Podiatrist Foot & Ankle Surgery
DX: E11.621 Type 2 diabetes mellitus with foot ulcer (principal); M86.171 Other acute osteomyelitis, right ankle and foot; I96 Gangrene, not elsewhere classified; L97.518 Non-pressure chronic ulcer of other part of right foot with other specified severity; I77.1 Stricture of artery; I79.8 Other disorders of arteries, arterioles and capillaries in diseases classified elsewhere; I70.203 Unspecified atherosclerosis of native arteries of extremities, bilateral legs; I87.2 Venous insufficiency (chronic) (peripheral); G99.0 Autonomic neuropathy in diseases classified elsewhere; I10 Essential (primary) hypertension; B96.89 Other specified bacterial agents as the cause of diseases classified elsewhere; I99.8 Other disorder of circulatory system; E78.5 Hyperlipidemia, unspecified; D89.89 Other specified disorders involving the immune mechanism, not elsewhere classified; L40.52 Psoriatic arthritis mutilans; Z01.810 Encounter for preprocedural cardiovascular examination
CPT/HCPCS: 36415; 82948; 99212; G0277

== ENCOUNTER → 2022-06-22 | Outpatient (CLI) | payer BC | LOC: WCC 14:31 | PROVIDERS: ATTEND Podiatrist Foot & Ankle Surgery | DX: E11.621 Type 2 diabetes mellitus with foot ulcer (principal); I96 Gangrene, not elsewhere classified; L97.518 Non-pressure chronic ulcer of other part of right foot with other specified severity; I77.1 Stricture of artery; I79.8 Other disorders of arteries, arterioles and capillaries in diseases classified elsewhere; B96.89 Other specified bacterial agents as the cause of diseases classified elsewhere; I87.2 Venous insufficiency (chronic) (peripheral); I99.8 Other disorder of circulatory system; D89.89 Other specified disorders involving the immune mechanism, not elsewhere classified; I10 Essential (primary) hypertension; E78.5 Hyperlipidemia, unspecified; G99.0 Autonomic neuropathy in diseases classified elsewhere; I70.203 Unspecified atherosclerosis of native arteries of extremities, bilateral legs; L40.52 Psoriatic arthritis mutilans; Z01.810 Encounter for preprocedural cardiovascular examination | CPT/HCPCS: 99212; G0277 ==

== ENCOUNTER → 2022-06-23 | Outpatient (CLI) | payer BC | LOC: WCC 10:39 | PROVIDERS: ATTEND Podiatrist Foot & Ankle Surgery | DX: E11.621 Type 2 diabetes mellitus with foot ulcer (principal); I96 Gangrene, not elsewhere classified; M86.171 Other acute osteomyelitis, right ankle and foot; L97.518 Non-pressure chronic ulcer of other part of right foot with other specified severity; I77.1 Stricture of artery; I79.8 Other disorders of arteries, arterioles and capillaries in diseases classified elsewhere; G99.0 Autonomic neuropathy in diseases classified elsewhere; I10 Essential (primary) hypertension; E78.5 Hyperlipidemia, unspecified; B96.89 Other specified bacterial agents as the cause of diseases classified elsewhere; I99.8 Other disorder of circulatory system; I87.2 Venous insufficiency (chronic) (peripheral); D89.89 Other specified disorders involving the immune mechanism, not elsewhere classified; I70.203 Unspecified atherosclerosis of native arteries of extremities, bilateral legs; L40.52 Psoriatic arthritis mutilans; Z01.810 Encounter for preprocedural cardiovascular examination ==

== ENCOUNTER → 2022-06-24 | Outpatient (CLI) | payer BC | LOC: WCC 14:42 | PROVIDERS: ATTEND Podiatrist Foot & Ankle Surgery | DX: E11.621 Type 2 diabetes mellitus with foot ulcer (principal); I96 Gangrene, not elsewhere classified; M86.171 Other acute osteomyelitis, right ankle and foot; L97.518 Non-pressure chronic ulcer of other part of right foot with other specified severity; I77.1 Stricture of artery; I79.8 Other disorders of arteries, arterioles and capillaries in diseases classified elsewhere; I70.203 Unspecified atherosclerosis of native arteries of extremities, bilateral legs; I87.2 Venous insufficiency (chronic) (peripheral); I10 Essential (primary) hypertension; E78.5 Hyperlipidemia, unspecified; I99.8 Other disorder of circulatory system; B96.89 Other specified bacterial agents as the cause of diseases classified elsewhere; D89.89 Other specified disorders involving the immune mechanism, not elsewhere classified; G99.0 Autonomic neuropathy in diseases classified elsewhere; L40.52 Psoriatic arthritis mutilans; Z01.810 Encounter for preprocedural cardiovascular examination ==

== ENCOUNTER → 2022-06-25 | Outpatient (CLI) | payer BC | LOC: WCC 11:56 | PROVIDERS: ATTEND Podiatrist Foot & Ankle Surgery | DX: E11.621 Type 2 diabetes mellitus with foot ulcer (principal); I96 Gangrene, not elsewhere classified; M86.171 Other acute osteomyelitis, right ankle and foot; L97.518 Non-pressure chronic ulcer of other part of right foot with other specified severity; I77.1 Stricture of artery; I79.8 Other disorders of arteries, arterioles and capillaries in diseases classified elsewhere; I70.203 Unspecified atherosclerosis of native arteries of extremities, bilateral legs; I87.2 Venous insufficiency (chronic) (peripheral); I10 Essential (primary) hypertension; E78.5 Hyperlipidemia, unspecified; I99.8 Other disorder of circulatory system; B96.89 Other specified bacterial agents as the cause of diseases classified elsewhere; D89.89 Other specified disorders involving the immune mechanism, not elsewhere classified; G99.0 Autonomic neuropathy in diseases classified elsewhere; L40.52 Psoriatic arthritis mutilans; Z01.810 Encounter for preprocedural cardiovascular examination ==

== ENCOUNTER → 2022-06-29 | Outpatient (CLI) | payer BC | LOC: WCC 11:01 | PROVIDERS: ATTEND Podiatrist Foot & Ankle Surgery | DX: E11.621 Type 2 diabetes mellitus with foot ulcer (principal); I96 Gangrene, not elsewhere classified; M86.171 Other acute osteomyelitis, right ankle and foot; L97.518 Non-pressure chronic ulcer of other part of right foot with other specified severity; I77.1 Stricture of artery; I70.203 Unspecified atherosclerosis of native arteries of extremities, bilateral legs; I79.8 Other disorders of arteries, arterioles and capillaries in diseases classified elsewhere; I87.2 Venous insufficiency (chronic) (peripheral); I10 Essential (primary) hypertension; E78.5 Hyperlipidemia, unspecified; I99.8 Other disorder of circulatory system; B96.89 Other specified bacterial agents as the cause of diseases classified elsewhere; D89.89 Other specified disorders involving the immune mechanism, not elsewhere classified; G99.0 Autonomic neuropathy in diseases classified elsewhere; L40.52 Psoriatic arthritis mutilans; Z01.810 Encounter for preprocedural cardiovascular examination | CPT/HCPCS: 99212; G0277 ==

== ENCOUNTER → 2022-06-30 | Outpatient (CLI) | payer BC | LOC: WCC 11:37 | PROVIDERS: ATTEND Podiatrist Foot & Ankle Surgery | DX: E11.621 Type 2 diabetes mellitus with foot ulcer (principal); I96 Gangrene, not elsewhere classified; M86.171 Other acute osteomyelitis, right ankle and foot; L97.518 Non-pressure chronic ulcer of other part of right foot with other specified severity; I77.1 Stricture of artery; I70.203 Unspecified atherosclerosis of native arteries of extremities, bilateral legs; I79.8 Other disorders of arteries, arterioles and capillaries in diseases classified elsewhere; I87.2 Venous insufficiency (chronic) (peripheral); I10 Essential (primary) hypertension; E78.5 Hyperlipidemia, unspecified; L40.52 Psoriatic arthritis mutilans; I99.8 Other disorder of circulatory system; D89.89 Other specified disorders involving the immune mechanism, not elsewhere classified; G99.0 Autonomic neuropathy in diseases classified elsewhere; Z01.810 Encounter for preprocedural cardiovascular examination | CPT/HCPCS: 97605; 99213; G0277 ==

== ENCOUNTER → 2022-07-01 | Outpatient (CLI) | payer BC | LOC: WCC 15:20 | PROVIDERS: ATTEND Podiatrist Foot & Ankle Surgery | DX: E11.621 Type 2 diabetes mellitus with foot ulcer (principal); M86.171 Other acute osteomyelitis, right ankle and foot; I96 Gangrene, not elsewhere classified; L97.518 Non-pressure chronic ulcer of other part of right foot with other specified severity; I77.1 Stricture of artery; I70.203 Unspecified atherosclerosis of native arteries of extremities, bilateral legs; I79.8 Other disorders of arteries, arterioles and capillaries in diseases classified elsewhere; I87.2 Venous insufficiency (chronic) (peripheral); I99.8 Other disorder of circulatory system; D89.89 Other specified disorders involving the immune mechanism, not elsewhere classified; I10 Essential (primary) hypertension; E78.5 Hyperlipidemia, unspecified; G99.0 Autonomic neuropathy in diseases classified elsewhere; L40.52 Psoriatic arthritis mutilans; Z01.810 Encounter for preprocedural cardiovascular examination ==

== ENCOUNTER → 2022-07-06 | Outpatient (CLI) | payer BC | LOC: WCC 12:44 | PROVIDERS: ATTEND Podiatrist Foot & Ankle Surgery | DX: E11.621 Type 2 diabetes mellitus with foot ulcer (principal); M86.171 Other acute osteomyelitis, right ankle and foot; I96 Gangrene, not elsewhere classified; L97.518 Non-pressure chronic ulcer of other part of right foot with other specified severity; I77.1 Stricture of artery; I79.8 Other disorders of arteries, arterioles and capillaries in diseases classified elsewhere; I70.203 Unspecified atherosclerosis of native arteries of extremities, bilateral legs; I87.2 Venous insufficiency (chronic) (peripheral); I10 Essential (primary) hypertension; E78.5 Hyperlipidemia, unspecified; I99.8 Other disorder of circulatory system; G99.0 Autonomic neuropathy in diseases classified elsewhere; L40.52 Psoriatic arthritis mutilans; D89.89 Other specified disorders involving the immune mechanism, not elsewhere classified; Z01.810 Encounter for preprocedural cardiovascular examination ==

== ENCOUNTER → 2022-07-07 | Outpatient (CLI) | payer BC | LOC: WCC 10:27 | PROVIDERS: ATTEND Podiatrist Foot & Ankle Surgery | DX: E11.621 Type 2 diabetes mellitus with foot ulcer (principal); M86.171 Other acute osteomyelitis, right ankle and foot; I96 Gangrene, not elsewhere classified; L97.518 Non-pressure chronic ulcer of other part of right foot with other specified severity; I77.1 Stricture of artery; I79.8 Other disorders of arteries, arterioles and capillaries in diseases classified elsewhere; I70.203 Unspecified atherosclerosis of native arteries of extremities, bilateral legs; I87.2 Venous insufficiency (chronic) (peripheral); G99.0 Autonomic neuropathy in diseases classified elsewhere; I10 Essential (primary) hypertension; I99.8 Other disorder of circulatory system; L40.52 Psoriatic arthritis mutilans; E78.5 Hyperlipidemia, unspecified; D89.89 Other specified disorders involving the immune mechanism, not elsewhere classified; Z01.810 Encounter for preprocedural cardiovascular examination | CPT/HCPCS: 97605; 99213; G0277 ==

== ENCOUNTER → 2022-07-20 | Outpatient (CLI) | payer BC | LOC: WCC 09:58 | PROVIDERS: ATTEND Podiatrist Foot & Ankle Surgery | DX: E11.621 Type 2 diabetes mellitus with foot ulcer (principal); I96 Gangrene, not elsewhere classified; M86.171 Other acute osteomyelitis, right ankle and foot; L97.518 Non-pressure chronic ulcer of other part of right foot with other specified severity; I77.1 Stricture of artery; I79.8 Other disorders of arteries, arterioles and capillaries in diseases classified elsewhere; I70.203 Unspecified atherosclerosis of native arteries of extremities, bilateral legs; I87.2 Venous insufficiency (chronic) (peripheral); L40.52 Psoriatic arthritis mutilans; I99.8 Other disorder of circulatory system; D89.89 Other specified disorders involving the immune mechanism, not elsewhere classified; I10 Essential (primary) hypertension; E78.5 Hyperlipidemia, unspecified; G99.0 Autonomic neuropathy in diseases classified elsewhere; Z01.810 Encounter for preprocedural cardiovascular examination | CPT/HCPCS: 36415; 82948; G0277 ==

== ENCOUNTER → 2022-07-21 | Outpatient (CLI) | payer BC | LOC: WCC 11:10 | PROVIDERS: ATTEND Podiatrist Foot & Ankle Surgery | DX: E11.621 Type 2 diabetes mellitus with foot ulcer (principal); I96 Gangrene, not elsewhere classified; M86.171 Other acute osteomyelitis, right ankle and foot; L97.518 Non-pressure chronic ulcer of other part of right foot with other specified severity; I77.1 Stricture of artery; I79.8 Other disorders of arteries, arterioles and capillaries in diseases classified elsewhere; I70.203 Unspecified atherosclerosis of native arteries of extremities, bilateral legs; I87.2 Venous insufficiency (chronic) (peripheral); I10 Essential (primary) hypertension; I99.8 Other disorder of circulatory system; D89.89 Other specified disorders involving the immune mechanism, not elsewhere classified; E78.5 Hyperlipidemia, unspecified; G99.0 Autonomic neuropathy in diseases classified elsewhere; L40.52 Psoriatic arthritis mutilans; Z01.810 Encounter for preprocedural cardiovascular examination | CPT/HCPCS: 11042; 97605; 99213; G0277 ==

== ENCOUNTER → 2022-07-22 | Outpatient (CLI) | payer BC | LOC: WCC 14:08 | PROVIDERS: ATTEND Podiatrist Foot & Ankle Surgery | DX: E11.621 Type 2 diabetes mellitus with foot ulcer (principal); I96 Gangrene, not elsewhere classified; M86.171 Other acute osteomyelitis, right ankle and foot; L97.518 Non-pressure chronic ulcer of other part of right foot with other specified severity; I77.1 Stricture of artery; I70.203 Unspecified atherosclerosis of native arteries of extremities, bilateral legs; I79.8 Other disorders of arteries, arterioles and capillaries in diseases classified elsewhere; I87.2 Venous insufficiency (chronic) (peripheral); I99.8 Other disorder of circulatory system; D89.89 Other specified disorders involving the immune mechanism, not elsewhere classified; E78.5 Hyperlipidemia, unspecified; I10 Essential (primary) hypertension; G99.0 Autonomic neuropathy in diseases classified elsewhere; L40.52 Psoriatic arthritis mutilans; Z01.810 Encounter for preprocedural cardiovascular examination ==

== ENCOUNTER → 2022-09-08 | Outpatient (CLI) | payer BC | LOC: WCC 11:30 | PROVIDERS: ATTEND Podiatrist Foot & Ankle Surgery | DX: E11.621 Type 2 diabetes mellitus with foot ulcer (principal); L60.2 Onychogryphosis; M86.171 Other acute osteomyelitis, right ankle and foot; L97.518 Non-pressure chronic ulcer of other part of right foot with other specified severity; I79.8 Other disorders of arteries, arterioles and capillaries in diseases classified elsewhere; I87.2 Venous insufficiency (chronic) (peripheral); I70.203 Unspecified atherosclerosis of native arteries of extremities, bilateral legs; D89.89 Other specified disorders involving the immune mechanism, not elsewhere classified; I10 Essential (primary) hypertension; E78.5 Hyperlipidemia, unspecified; G99.0 Autonomic neuropathy in diseases classified elsewhere; L40.52 Psoriatic arthritis mutilans; Z01.810 Encounter for preprocedural cardiovascular examination ==

== ENCOUNTER → 2022-11-03 | Outpatient (CLI) | payer BC | LOC: WCC 09:14 | PROVIDERS: ATTEND Podiatrist Foot & Ankle Surgery | DX: E11.621 Type 2 diabetes mellitus with foot ulcer (principal); L97.518 Non-pressure chronic ulcer of other part of right foot with other specified severity ==